=== PATIENT | female | born 2000 | race Caucasian/White ===

== ENCOUNTER 2023-03-26 06:00 | Day surgery (SDC) | payer OTHER ==
[~2023-03-26] VITALS: Ht 175.3 cm; Wt 126.1 kg
[2023-03-26 06:30] LABS: HCG,QUAL RESULT NEGATIVE (NEGATIVE)
[2023-03-26] MEDS ORDERED: SEVOFLURANE 15 MIN GAS INH ONE (07:55)
[2023-03-26] MEDS ORDERED: MEPERIDINE HCL/PF 50 MG/ML VIAL ONE (07:55)
[2023-03-26] MEDS ORDERED: BUPIVACAINE /EPINEPHRINE/PF 0.5% 30 ML VIAL INJ ONE (07:55)
[2023-03-26] MEDS ORDERED: DEXAMETHASONE SOD PHOSPHATE 4 MG/ML VIAL ONE (07:55)
[2023-03-26] MEDS ORDERED: ROCURONIUM BROMIDE 10 MG/ML (ZEMURON) ONE (07:55)
[2023-03-26] MEDS ORDERED: SUGAMMADEX SODIUM 200 MG/2 ML VIAL IV ONE (07:55)
[2023-03-26] MEDS ORDERED: LR 1,000 ML IV.SOLN IV ONE (07:55)
[2023-03-26] MEDS ORDERED: ONDANSETRON HCL 4 MG/2 ML VIAL ONE (07:55)
[2023-03-26] MEDS ORDERED: PROPOFOL 200MG/ 20ML VIAL (DIPRIVAN) IV ONE (07:55)
[2023-03-26] MEDS ORDERED: NS IRRIG SOLN 1000 ML IR ONE (07:55)
[2023-03-26] MEDS ORDERED: fentaNYL CITRATE/PF 100 MCG/2 ML AMP ONE (07:55)
[2023-03-26] MEDS ORDERED: SUCCINYLCHOLINE CHLORIDE 20 MG/ML(QUELICIN) ONE (07:55)
[2023-03-26] MEDS ORDERED: ONDANSETRON HCL 4 MG/2 ML VIAL IVP PRN ×2 (09:45)
[2023-03-26] MEDS ORDERED: MEPERIDINE HCL/PF 25 MG/ML DISP.SYRIN IVP PRN (09:45)
[2023-03-26] MEDS ORDERED: METOCLOPRAMIDE HCL 10 MG/2 ML VIAL IVP PRN (09:45)
[2023-03-26] MEDS ORDERED: HYDROmorphone 1 MG/ML INJ. CARTRIDGE IVP PRN (09:45)
[2023-03-26] MEDS ORDERED: HYDROcodone/ACETAMIN 5-325 MG TAB (NORCO/ VICODIN) PO PRN (09:45)
[2023-03-26] MEDS ORDERED: LR 1,000 ML IV SCH (09:45)
[2023-03-26] MEDS ORDERED: KETOROLAC TROMETHAMINE 30 MG VIAL IVP PRN (09:45)
[2023-03-26] MEDS ORDERED: OXYCODONE/ACETAMINOPHEN 5-325 TABLET PO PRN ×2 (09:45)
[2023-03-26] MEDS ORDERED: KETOROLAC TROMETHAMINE 30 MG VIAL ONE (10:19)
[2023-03-26 12:31] VITALS: BP_SYST 120
== END 2023-03-26 12:25 | disposition home or self-care (01) ==
LOC: SDS 06:00 → SMU 06:00 → SDS 12:25
PROVIDERS: ATTEND Specialist
DX: N83.202 Unspecified ovarian cyst, left side (principal); N94.6 Dysmenorrhea, unspecified; N83.201 Unspecified ovarian cyst, right side; N80.00 Endometriosis of the uterus, unspecified
CPT/HCPCS: 84703; 87081; 88108; 88160; 88161; 88305; 88341; 88342; C1727; J0330; J1100; J1885; J2175; J2405; J2704; J3010; J3490; J7120